=== PATIENT | female | born 1960 | race African-American/Black ===

== ENCOUNTER 2017-10-18 13:27 | Emergency (ER) | payer OTHER ==
[~2017-10-18] VITALS: Ht 162.6 cm; Wt 85.3 kg
[2017-10-18] MEDS ORDERED: METFORMIN HCL1000 M1 ORAL (13:33)
[2017-10-18 13:39] VITALS: BP 136/81
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
[2017-10-18] MEDS ORDERED: ROBAXIN500 MG PO (14:06)
[2017-10-18] MEDS ORDERED: LIDODERM700 M1 TOPIC (14:06)
[2017-10-18] MEDS ORDERED: IBUPROFEN600 MG ORAL (14:06)
[2017-10-18 14:13] VITALS: BP 136/81
== END 2017-10-18 14:20 | disposition home or self-care (01) ==
LOC: EMR 14:10
DX: S46.912A Strain of unspecified muscle, fascia and tendon at shoulder and upper arm level, left arm, initial encounter (principal); V43.52XA Car driver injured in collision with other type car in traffic accident, initial encounter; Y92.481 Parking lot as the place of occurrence of the external cause; M79.89 Other specified soft tissue disorders; I10 Essential (primary) hypertension; E11.9 Type 2 diabetes mellitus without complications
CPT/HCPCS: 99284

== ENCOUNTER 2018-12-07 13:47 | Emergency (ER) | payer OTHER ==
[~2018-12-07] VITALS: Ht 162.6 cm; Wt 89.4 kg
[~2018-12-07 13:47] MED LIST: IBUPROFEN600 MG ORAL; LIDODERM700 M1 TOPIC; METFORMIN HCL1000 M1 ORAL; ROBAXIN500 MG PO
[2018-12-07] MEDS ORDERED: LIPITOR80 MG ORAL (13:59)
[2018-12-07 14:05] VITALS: BP 149/85
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
[2018-12-07] MEDS ORDERED: Cyclobenzaprine 10mg Tab ORAL ONE (14:15)
[2018-12-07] MEDS ORDERED: Ketorolac 30mg Inj IV ONE (14:15)
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
--- NOTE | 2018-12-07 14:28 | NUR ---
ED Nurse Note: pt medicated as ordered. pt able to tolerate po meds and iv ketorolac. will continue to monitor.
[2018-12-07] MEDS ORDERED: Acetaminophen 500mg (ES) tab ORAL ONE (14:30)
--- NOTE | 2018-12-07 15:01 | NUR ---
ED Nurse Note: pt went to ct with tech
--- NOTE | 2018-12-07 15:15 | NUR ---
ED Nurse Note: pt went back from ct with tech
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
[2018-12-07] MEDS ORDERED: NORCO 5-325 TA1 EACH ORAL (16:15)
[2018-12-07] MEDS ORDERED: CYCLOBENZAPRINE10 MG ORAL (16:15)
[2018-12-07 16:23] VITALS: BP 149/85
--- NOTE | 2018-12-07 16:23 | NUR ---
ER DISCHARGE NOTE: Patient is cleared to be discharged per ERMD, pt is aox4, on room air, with stable vital signs. pt was given dc and prescription instructions, pt was able to verbalize understanding, pt id band and iv site removed without complications. pt is able to ambulate with steady gait. pt took all belongings.
== END 2018-12-07 16:23 | disposition home or self-care (01) ==
LOC: EMR 14:53
DX: S13.4XXA Sprain of ligaments of cervical spine, initial encounter (principal); S39.012A Strain of muscle, fascia and tendon of lower back, initial encounter; V43.52XA Car driver injured in collision with other type car in traffic accident, initial encounter; Y92.410 Unspecified street and highway as the place of occurrence of the external cause; E04.9 Nontoxic goiter, unspecified; I10 Essential (primary) hypertension; E11.9 Type 2 diabetes mellitus without complications; M50.322 Other cervical disc degeneration at C5-C6 level
CPT/HCPCS: 72125; 72131; 96374; 99284; J1885; J7040